=== PATIENT | male | born 1985 | race Caucasian/White ===

== ENCOUNTER 2021-08-30 22:40 | Emergency (ER) | payer SELFPAY ==
[2021-08-30 23:13] VITALS: BP 137/93; PULSE 82; RESP 20; TEMP 36.2; O2SAT 97; BMI 30.4
[2021-08-31 00:46] VITALS: BP 118/83; PULSE 69; RESP 16; O2SAT 99
--- NOTE | 2021-08-31 09:44 | ED.GIBLEED ---
HPI - GI Bleed General Date Seen: 08/30/21 Chief complaint: GI Bleed Stated complaint: Blood in stools Time Seen by Provider: 08/30/21 23:26 Source: patient and RN notes reviewed Mode of arrival: ambulatory Limitations: no limitations History of Present Illness HPI Narrative: 36-year-old man presenting with a friend with concern of blood with stooling. Not particular pain but does report than a residual ache in his low abdomen/pelvis also over the last 3 days. He has had a daily mild bowel movement over the last 3 days and notes what looked like a ?murder scene? the 1st and 2nd bowel movement. Today less so. Still a good deal bleeding though. He is not bleeding between his bowel movements. Denies a history of food intolerances. Not feeling short of air lightheaded. Does have nausea after these bowel movements. There has been no fever. No trauma noted. He called in to triage who recommended to be evaluated in the emergency department. He was actually trying to make a primary care appointment. Denies a personal or family history of irritable bowel or inflammatory bowel disorders. No known personal history of hemorrhoids. Related Data Home Medications Medication Instructions Recorded Confirmed No Known Home Medications 08/30/21 08/30/21 Allergies Allergy/AdvReac Type Severity Reaction Status Date / Time tetracycline Allergy Verified 08/30/21 23:22 Review of Systems Status of ROS: Reports: 10 or more systems reviewed and unremarkable except as noted in History and below Const: Denies: fever or chills PFSH [facility] Medical History No significant past medical history Social History Smoking Status: Never smoker Do you use any of these nicotine containing products: E-Cigarettes Second hand tobacco smoke exposure: No How often do you have a drink containing alcohol: monthly or less How many standard drinks containing alcohol do you have on a typical day: 1 or 2 AUDIT-C Alcohol total score: 1 Non-prescribed substance use: denies use service: Yes Exam Narrative: Exam Narrative: Pleasant NAD. Appropriately and casually groomed. Accompanied by friend Skin is warm and dry. No evidence of active bleeding. He is breathing easily. Cranial nerves 2-12 intact. Moving all extremities without difficulty with good perfusion. Heart with regular rate and rhythm. No murmurs rubs gallops Abdomen with normoactive bowel sounds soft without masses and slightly tender in the suprapubic area. anoscopy exam shows a small noninflamed swelling at the 9 o'clock position consistent with probable prior hemorrhoid. No active bleeding or internal hemorrhoids were visualized at least the extent of the anoscope. Const: Vital Signs, click to edit/add: Vital Signs - 24 hr 08/30/21 23:13 08/31/21 00:46 Temperature 97.2 F L Pulse Rate [Pulse Oximeter] 82 69 Respiratory Rate 20 16 Blood Pressure [Ri ght Upper Arm] 137/93 H 118/83 Pulse Oximetry 97 99 Documenting provider has reviewed patient's vital signs: yes Course Course Hospital Course: I did anticipate potentially doing abdomen pelvis CT though admittedly suspect this is lower yield and in no other symptoms of concerning infectious etiology nor is abdomen acute. After initially ordering this I did consult with a colleague who would be doing colonoscopy and confirmed colonoscopy really is better course of action in this case. Vital Signs Vital signs: Initial Vital Signs Temperature 97.2 F L 08/30/21 23:13 Temperature Source Temporal Artery Scan 08/30/21 23:13 Pulse Rate 82 08/30/21 23:13 Pulse Rhythm 08/30/21 23:13 Respiratory Rate 20 08/30/21 23:13 Blood Pressure 137/93 H 08/30/21 23:13 Blood Pressure Mean 107 08/30/21 23:13 Blood Pressure Position Supine 08/30/21 23:13 Pulse Oximetry 97 08/30/21 23:13 Oxygen Delivery Method 08/30/21 23:13 Vital Signs Temperature 97.2 F L 08/30/21 23:13 Pulse Rate 82 08/30/21 23:13 Respiratory Rate 20 08/30/21 23:13 Blood Pressure 137/93 H 08/30/21 23:13 Pulse Oximetry 97 08/30/21 23:13 Temperature 97.2 F L 08/30/21 23:13 Pulse Rate 69 08/31/21 00:46 Respiratory Rate 16 08/31/21 00:46 Blood Pressure 118/83 08/31/21 00:46 Pulse Oximetry 99 08/31/21 00:46 MDM - GI Bleed MDM Narrative Medical decision making narrative: See above. With normal vitals and no extreme discomfort do not think laboratory evaluation is necessary at this time. No further bleeding during time in the ER. Comfortable with outpatient follow-up. Medical Records Attestation: I reviewed the patient's medical records. (Limited are available.) Discharge Plan Discharge Clinical Impression: Rectal bleeding Patient Disposition: Home, Self-Care Condition: Stable Additional Instructions: Please call tomorrow to schedule colonoscopy on recommendation from the emergency department. Probably be good to establish primary care provider well. At the [facility] Dr. Shah is the GI doc doing colonoscopies. At [facility] Dr. Yousif or the General Surgeons ([place] at least) do them. Can call [phone] or [phone] to the [facility] Otherwise return for increasing frequency of bleeding, particularly outside of bowel movements, marked increase in abdominal pain, fever, repeated vomiting. Prescriptions: No Action No Known Home Medications 0RF Follow Up/Referrals: Elaine Laureano MD [Primary Care Provider] - Stand Alone Forms: [employer] Info Instructions
== END 2021-08-31 00:53 | disposition home or self-care (01) ==
LOC: ED 08-31 00:35
PROVIDERS: Emergency Provider Family Medicine; PCP Pediatrics
DX: K62.5 Hemorrhage of anus and rectum (principal)
CPT/HCPCS: 99283; 99284

== ENCOUNTER 2024-09-24 00:38 | Emergency (ER) | payer BC, SELFPAY ==
--- OUTSIDE RECORDS SUMMARY | 2024-09-24 00:41 | XMS_ITS | Clinical Summary ---
Author Organization [facility] Address [address] [place] [id number] Care Team Providers Care Tools Administrator Name Role Phone Mike Mayen DO Primary Care Provider [phone] Allergies Active Allergy Reactions Criticality Noted Date Comments Tetracycline Other - Describe In Comment Field 12/19/2006 Pseudotumor cerebri Medications ondansetron (ZOFRAN ODT) 4 mg disintegrating tabletIndications:M igraine syndrome Place 1 Tablet (4 mg) on the tongue every 8 hours if needed for Nausea/Vomit ing. 30 Tablet 5 Active SUMAtriptan (IMITREX) 50 mg tabletIndications:M igraine syndrome Take 1 Tablet (50 mg) by mouth every 2 hours if needed for Migraine. Give at minimum 2hrs apart. Max Dose: 200mg per 24hrs. 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 Alcohol use disorder soon after. Sober from those substances at age 25. Sober since that time with occasional minimal alcohol use. Assessment & Plan (04/12/2024 7:50 AM HOME ASSESSMENT NURSE): Meth. Noted in 2018. Has been to treatment. Encounters Date Type Department Care Team Description 09/23/2024 1:25 PM CDT Office Visit [facility] [address] [place] [address] Adelina Mendoza DO URI (started Monday-/body aches, fever, ) 09/23/2024 Travel from Last 3 Months Immunizations Immunization Administration Dates Next Due DTP 05/11/1990,01/15/1988,1986 ,1986,1986 Influenza, IIV4 02/04/2015 MMR 09/08/1998,08/13/1987 Oral Polio Vaccine 05/11/1989,01/15/1988, 987,1986 Td (Age >=7 Years) 09/08/1998,07/30/1996 Tdap 10/13/2014 Family History Medical History Relation Name Comments Cancer Maternal Grandfather multiple heart attack Maternal Grandfather Relation Name Status Comments Maternal Grandfather Social History Tobacco Use Types Packs/Day Years Used Date Smoking Tobacco: Former Cigarettes Q uit: 2002 Smokeless Tobacco: Former Tobacco Cessation:Counseling Given: Yes Alcohol Use Standard Drinks/Week Comments Yes 0 (1 standard drink = 0.6 oz pur e alcohol) once a week PHQ-2 Answer Date Recorded PHQ-2 TOTAL SCORE 0 05/03/2024 Social Connections Answer Date Recorded Do you often feel lonely or isolated from those around you? 0 06/20/2023 Financial Resource Strain Answer Date R ecorded Difficulty of Paying Living Expenses 3 06/20/2023 Difficulty of Paying Living Expenses Not on file 06/20/2023 Food Insecurity Answer Date Recorded Do you worry your food will run out before you are able to buy more? 1 06/20/2023 Transportation Needs Answer Date Record ed Does lack of transportation keep you from medica l appointments? 1 06/20/2023 Does lack of transportation keep you from work, meetings or getting things that you need? 1 06/20/2023 Housing Stability Answer Date Recorded What is your housing situation today? 1 06/20/2023 Utilities Answer Date Recorded Do you have trouble paying f or utilities (for example, heat, electricity, water, phone)? 1 06/20/2023 Sex and Gender Information Value Date Recorded Sex Assigned at Not on file Legal Sex Male 6:05 AM HOME ASSESSMENT NURSE Gender Identity Not on file Sexual Orientation Not on file Obstetrics History Last Filed Vital Signs Vital Sign Reading Time Taken Comments Blood Pressure 147/95 09/23/2024 1:23 PM CDT Pulse 86 09/23/2024 1:23 PM CDT Temperature 36.8 C (98.2 F) 09/23/2024 1:23 PM CDT Respiratory Rate - - Oxygen Saturation 98% 09/23/2024 1:23 PM CDT Inhaled Oxygen Concentration - - Weight 97.7 kg (215 lb 6.4 oz) 09/23/2024 1:23 P M CDT Height 182.9 cm (6') 05/03/2024 12:22 PM HOME ASSESSMENT NURSE Body Mass Index 29.21 05/03/2024 12:22 PM HOME ASSESSMENT NURSE Plan of Treatment Health Maintenance Due Date Last Done Comments Hepatitis B series for 19+ (1 of 3 - 19+ 3-dose series) 2005 COVID-19 vaccine series (2023- season) 2023 Tetanus booster 10/13/2024 10/13/2014, 09/27, 09/08/1998, Additional history exists Influenza Vaccine (#1) 2024 02/04/2015 BMI (ht and wt on same day) for age 18+ 05/03/2025 05/03/2024, 04/12/2024, 06/13/2022, Additional history exists Depression screening for age 12+ 05/03/2025 05/03/2024, 09/01/2021, 10/01/2018, Additional history exists Lipids for age 35-44 04/26/2029 04/26/2024 HIV for age 15-65 Completed 10/13/2014 Hepatitis C screening for age 18-79 Completed 10/13/2014 Pneumococcal series for age 6-49 Aged Out No longer eligible based on patient's age to complete this topic Procedures Procedure Name Priority Date/Time Associated Diagnosis Comments LIPID PANEL Routine 04/26/2024 9:24 AM HOME ASSESSMENT NURSE Screening cholesterol level ANTI HIV 1/2 Routine 10/13/2014 10:24 AM CDT Extensive tattoos ANTI HCV Routine 10/13/2014 10:24 AM CDT Extensive tattoos from Last 3 Months or Most Recently Relevant to Health Maintenance Results * (ABNORMAL) LIPID PANEL (04/26/2024 9:24 AM HOME ASSESSMENT NURSE) CHOLESTEROL, TOTAL 154 <200 mg/dL [facility] HDL CHOLESTEROL 39(L) > OR = 40 mg/dL [facility] TRIGLYCERIDES 57 <150 mg/dL [facility] LDL-CHOLESTEROL 101(H) mg/dL (calc) [facility] Comment: Reference range: <100 Desirable range <100 mg/dL for primary prevention; <70 mg/dL for patients with CHD or diabetic patients with > or = 2 CHD risk factors. LDL-C is now calculated using the Eliseo-Carlene calculation, which is a validated novel method providing better accuracy than the Friedewald equation in the estimation of LDL-C. Eliseo SS et al. ELLIE. 2013;310(19): 6493-3029 (http://education.PPTV/faq/YYD434) CHOL/HDLC RATIO 3.9 <5.0 (calc) [facility] NON HDL CHOLESTEROL 115 <130 mg/dL (calc) [facility] Comment: For patients with diabetes plus 1 major ASCVD risk factor, treating to a non-HDL-C goal of <100 mg/dL (LDL-C of <70 mg/dL) is considered a therapeutic option. Blood BLOOD SPECIMEN / Unknown 04/26/2024 9:24 AM HOME ASSESSMENT NURSE 04/26/2024 9:25 AM HOME ASSESSMENT NURSE us Darin Manzano MD CHEMISTRY Final Result [facility] [address] [place] [address], [facility] [address] [place] [address] * ANTI HCV (10/13/2014 10:24 AM CDT) HEPATITIS C ANTIBODY Non-Reacti ve Non-Reacti ve 10/13/2014 6:12 PM CDT [facility] Blood specimen (specimen) BLOOD SPECIMEN / Unknown Venipuncture / Unknown 10/13/2014 10:24 AM CDT 10/13/2014 10:24 AM CDT Narrative [facility] - 10/13/2014 6:12 PM CDT Antibodies to HCV not detected; does not exclude the possibility of exposure to HCV. Tavon Alvarado MD SEND OUTS Final Result [facility] [address] [place] [address], * ANTI HIV 1/2 (10/13/2014 10:24 AM CDT) HIV-1/HIV-2 ANTIBODY Non-Reacti ve Non-Reacti ve 10/13/2014 6:11 PM CDT [facility] Blood specimen (specimen) BLOOD SPECIMEN / Unknown Venipuncture / Unknown 10/13/2014 10:24 AM CDT 10/13/2014 10:24 AM CDT [facility] - 10/13/2014 6:11 PM CDT HIV-1 p24 and HIV-1/HIV-2 Ab not detected Tavon Alvarado MD SEND OUTS Final Result [facility] [address] [place] [address], from Last 3 Months or Most Recently Relevant to Health Maintenance Insurance [place] [employer] Care Teams Tools Administrator Relationship Specialty Start Date End Date [place] [address] [place] [address] PCP - General Family Practice 04/12/24
[2024-09-24 00:42] VITALS: BP 152/95; PULSE 80; TEMP 36.5; O2SAT 96; BMI 30.7
--- NOTE | 2024-09-24 01:11 | CRLHL7_ITS ---
For Patients: As a result of the Cures Act, medical imaging exams and procedure reports are released immediately into your electronic medical record. You may view this report before your referring provider. If you have questions, please contact your health care provider. INDICATION: Palpitations. TECHNIQUE: Chest 2 views. COMPARISON: None. FINDINGS: Cardiovascular and mediastinum: Heart size and vasculature are normal in caliber and appearance. Lungs and pleural spaces: No focal consolidation, pleural effusion, or pneumothorax. Bones and soft tissues: Unremarkable for age. IMPRESSION: No evidence of an acute pulmonary process. Dictated by Darin Arzate MD @ 09/24/2024 1:37:54 AM (Electronically Signed)
--- NOTE | 2024-09-24 01:18 | ED_ITS ---
HPI - General Adult General Chief complaint: Arrhythmia/Palpitations Stated complaint: shortness of breath/rapid hearbeat Time Seen by Provider: 09/24/24 00:44 Source: patient Mode of arrival: ambulatory Limitations: no limitations History of Present Illness HPI narrative: 39-year-old male presents to the emergency department with an hour and a half history of sensation of racing, pounding heart. No trauma or injury. No prior history of similar symptoms. No history of cardiac disease. Sensation of heart pounding with a feeling of tightness in his left chest briefly. No history DVT or PE. Symptoms spontaneously resolved on route to the emergency department and is asymptomatic at the time of arrival. No alcohol in the last 48 hours but did multiple bumps of cocaine 2 nights ago, reports that that was his 1st time. No shortness of breath, no GI changes. No nausea or vomiting. Denies other recreational drugs in the last couple of days. Reports that he smokes marijuana a couple of times per month. Does not use any type of a fitness watch, but he did download an amanda on his phone that he could check his heart rate with using the sensors near his camera, and it said his heart rate was around 80. When I asked more specifically if he felt like his heart was skipping beats, going really fast or just pounding, he was unable to clarify this further. Symptoms awoke him from sleep. No fever or other recent illness or ill minute. Did not try any other interventions prior to coming to ED. past medical history benign per his report. No major long-term health problems. Recreational cocaine as described above a few days ago. Allergies to tetracycline, does have prescriptions for Imitrex and Zofran for migraines, no recent use. No tobacco products. ROS is notable for the cardiac symptoms as above, otherwise denies times 12 systems. Related Data Home Medications ?Medication ?Instructions ?Recorded ?Confirmed No Known Home Medications 08/30/2106/18 Allergies Allergy/AdvReac Type Severity Reaction Status Date / Time tetracycline Allergy Verified 09/24/24 00:46 [facility] Medical History No significant past medical history Social History (System 10/14/21 @ 10:30 by Nery Mccall) Smoking Status: Never smoker Do you use any of these nicotine containing products: E-Cigarettes Second hand tobacco smoke exposure: No How often do you have a drink containing alcohol: monthly or less How many standard drinks containing alcohol do you have on a typical day: 1 or 2 AUDIT-C Alcohol total score: 1 Non-prescribed substance use: denies use service: Yes Exam Const: Vital Signs, click to edit/add: Vital Signs - 24 hr 09/24/ 00:42 Temperature 97.7 F Pulse Rate [Pulse Oximeter] 80 Blood Pressure [Ri ght Upper Arm] 152/95 H Pulse Oximetry 96 Oxygen Delivery Me thod Room Air Documenting provider has reviewed patient's vital signs: yes Common normals: no apparent distress and alert General appearance: cooperative and comfortable HENMT: Common normals: normocephalic, moist oral mucous membranes and oropharynx normal Head and scalp: normocephalic Face and sinus: normal fac ial exam Mouth: oral and palatal mucosa normal Eye: Common normals: conjunctivae normal General eye: normal appearance of both eyes Conjunctiva: conjunctiva(e) normal Neck & C-Spine: Common normals: full ROM and no lymphadenopathy General: normal visual inspection Chest: Common normals: inspection of chest normal Resp: Common normals: normal respiratory effort, no use of accessory muscles and clear to auscultation bilaterally Effort & inspection: able to speak in complete sentences Auscultation: clear to auscultation bilaterally Cardio: Common normals: regular rate, regular rhythm, S1 normal heart sound, S2 normal heart sound and no murmurs Rate: regular rate Rhythm: regular rhythm Heart sounds: S1 normal and S2 normal GI: Common normals: Normal to inspection, nondistended, normoactive bowel sounds present, soft to palpation, non-tender, no hepatosplenomegaly and no masses Palpation: soft and no hepatosplenomegaly Extremity: Common normals: normal to inspection, normal capillary refill and no pedal edema Neuro: Sensorium/orientation: alert Speech: speech normal Psych: Appearance: grossly normal Attitude: calm Activity/motor behavior: appropriate eye contact Insight: fair Judgement: fair Skin: Common normals: no rashes or lesions noted General skin exam: no rashes or lesions noted Course Course ED Course: 39-year-old male with episode of palpitations and chest tightness, now resolved. Differential diagnosis including acute coronary syndrome, pulmonary embolism, heart failure, complications recent heavy cocaine use, anxiety, GERD, musculoskeletal symptoms, arrhythmia, amongst multiple others. Recommended chest x-ray, air sampling and monitoring, EKG, typical cardiac labs. Patient remains asymptomatic at this time, no treatment needed acutely. There is no evidence of significant persistent tachycardia or hypoxia, I do not think that workup for pulmonary embolism is necessary. Will add thyroid testing as well. Await findings. Reevaluation(s) Time of Reevaluation #1: 02:35 Reevaluation #1: Patient remains an asymptomatic here in the emergency department. Has been observed now for an hour and a half with no symptoms. Do not recommend serial troponin based on presentation. Counseled patient on rationale. brief episodes of palpitations can be triggered by many things including reflux, anxiety, poor sleep, the recent cocaine usage, alcohol, many others in septal people. There are no signs of thyroid disease, dehydration, acute coronary syndrome or any arrhythmia contributing today. I recommended discharge from the emergency department, keeping a close symptom diary. He now does have an amanda on his phone to track his heart rate, encouraged him to use this if he becomes symptomatic. Make a follow-up appointment with his primary care provider to discuss further testing. Would consider doing a Holter monitor, could consider an echo or stress test if symptoms would warrant but with a single episode, these are unlikely to be necessary. Alarm symptoms were reviewed that would warrant ED presentation. Written instructions provided, all questions answered. Vital Signs Vital signs: Initial Vital Signs Temperature 97.7 F 09/24/24 00:42 Temperature Source Temporal Artery Scan 09/24/24 00:42 Pulse Rate 80 09/24/24 00:42 Pulse Rhythm Regular 09/24/24 00:42 Blood Pressure 152/95 H 09/24/24 00:42 Blood Pressure Mean 114 H 09/24/24 00:42 Blood Pressure Position Sitting 09/24/24 00:42 Pulse Oximetry 96 09/24/24 00:42 Oxygen Delivery Method Room Air 09/24/24 00:42 Vital Signs Temperature 97.7 F 09/24/24 00:42 Pulse Rate 80 09/24/24 00:42 Blood Pressure 152/95 H 09/24/24 00:42 Pulse Oximetry 96 09/24/24 00:42 Oxygen Delivery Method Room Air 09/24/24 00:42 Temperature 97.7 F 09/24/24 00:42 Pulse Rate 80 09/24/24 00:42 Blood Pressure 152/95 H 09/24/24 00:42 Pulse Oximetry 96 09/24/24 00:42 Oxygen Delivery Method Room Air 09/24/24 00:42 Medical Decision Making Lab Data Lab results reviewed: Yes I reviewed the patient's lab results Lab results narrative: Labs all reassuring. Labs: Lab Results 09/24/24 Range/Units 01:25 WBC 8.48 (4.50-11.00) K/uL RBC 5.11 (4.30-5.90) m/uL Hgb 15.7 (13.5-17.5) gm/dL Hct 44.8 (37.0-53.0) % MCV 88 (80-100) fL MCH 31 (26-34) pg MCHC 35 (32-36) gm/dL RDW Coeff of Keegan 12.0 (11.5-15.5) % Plt Count 285 (140-440) K/uL Neut % (Auto) 55.6 (42.0-72.0) % Lymph % (Auto) 24.5 (20-44) % Harlan % (Auto) 11.9 H (0.0-11.0) % Eos % (Auto) 6.5 (0.0-7.0) % Baso % (Auto) 0.8 (0.0-3.0) % Neut # (Auto) 4.71 (1.7-7.0) K/uL Lymph # (Auto) 2.08 (0.90-2.90) K/uL Harlan # (Auto) 1.00 H (0.00-0.90) K/UL Eos # (Auto) 0.55 H (0.00-0.50) K/uL Baso # (Auto) 0.07 (0.00-0.30) K/uL Abs Immat Gran (auto) 0.06 (0.00-0.30) K/uL Imm/Tot Granulo (auto) 0.7 % Sodium 141 (135-149) mmol/L Potassium 3.8 (3.6-5.1) mmol/L Chloride 106 (96-114) mmol/L Carbon Dioxide 26 (20-32) mmol/L Anion Gap 9 (7-15) mEq/L BUN 12 (5-24) mg/dL Creatinine 1.1 (0.5-1.5) mg/dL Estimated Creat Clear 96.98 Estimated GFR 88 ml/min Glucose 107 (60-115) mg/dL Calcium 9.3 (8.4-10.6) mg/dL Troponin I < 0.01 (0.01-0.04) ng/mL C-Reactive Protein 0.9 (0.5-1.0) mg/dL TSH 2.000 (0.270-4.200) uIU/mL Imaging Data Chest x-ray: Attestation: I have reviewed the pertinent imaging results. My impression: Normal chest x-ray. No infiltrate, cardiomegaly, effusions, pneumothorax or other major abnormalities. Radiologist's impression: IMPRESSION: No evidence of an acute pulmonary process. Dictated by Darin Arzate MD @ 09/24/2024 1:37:54 AM (Electronically Signed) ECG Data Attestation: I personally reviewed and interpreted this ECG as follows: Prior ECG tracings: not available for review Interpretation: Sinus rhythm with a rate of 67. Normal intervals and axis. No significant ST or T-wave abnormalities. Normal EKG. Discharge Plan Discharge Clinical Impression: Palpitations Patient Disposition: Home w/ Parent or Adult Condition: Improved Instructions: Heart Palpitations (DC) Additional Instructions: As we discussed, this feeling of racing heart and chest tightness can be triggered by many things. In the emergency department, it was determined that you are not in an abnormal heart rhythm, also cold and arrhythmia. There were no signs of heart attack, heart failure, blood clots, dehydration, electrolyte abnormalities, infection or other major abnormalities. There are many things that can trigger this including anxiety, stimulant medications, recent poor sleep, thyroid disorders, gastric reflux, amongst others. Since her symptoms had resolved prior to coming into the emergency department, it is difficult to tell if you were in an abnormal heart rhythm prior to arrival. I would recommend that you make a follow-up appointment with your primary care provider to discuss her symptoms and consider having a Holter monitor placed. Your provider can also consider doing an echo which is an ultrasound of the heart or a stress test which is a way to evaluate the arteries if you have persistent or worsening symptoms. Typically in the emergency department, we are not concerned unless her heart rate is persistently over 125 at rest. If you have severe, unrelenting symptoms, you should be re-evaluated. Do consider investing in a pulse oximeter, these are inexpensive and can be obtained from any local pharmacy. These will tell you your heart rate and oxygen levels and may give you reassurance for similar episodes in the future. You may return to unrestricted work duties. I would not recommend continued use of cocaine. Activity Level: No Restrictions Prescriptions: No Action No Known Home Medications Follow Up/Referrals: Elaine Laureano MD [Staff Physician, Pediatrics] Stand Alone Forms: [employer] Info Instructions
[2024-09-24 01:30] LABS: Hematocrit 44.8 % (37.0-53.0); Hemoglobin* 15.7 gm/dL (13.5-17.5); Immature Granulocytes Abs Auto 0.06 K/uL (0.00-0.30); Immature Granulocytes Pct Auto 0.7 %; Lymphocytes Absolute Auto 2.08 K/uL (0.90-2.90); Mean Corpuscular HGB Conc 35 gm/dL (32-36); Mean Corpuscular Hemoglobin 31 pg (26-34); Mean Corpuscular Volume 88 fL (80-100); RDW Coefficient of Variation % 12.0 % (11.5-15.5); Red Blood Count 5.11 m/uL (4.30-5.90); White Blood Count* 8.48 K/uL (4.50-11.00)
[2024-09-24 01:36] LABS: Slide Review Reflex No
[2024-09-24 01:48] LABS: Blood Urea Nitrogen* 12 mg/dL (5-24); Calcium* 9.3 mg/dL (8.4-10.6); Carbon Dioxide* 26 mmol/L (20-32); Creatinine* 1.1 mg/dL (0.5-1.5); Est. Creatinine Clearance* 96.98; Estimated Glomerular Filt Rate 88 ml/min; Glucose* 107 mg/dL (60-115)
[2024-09-24 02:04] LABS: Anion Gap 9 mEq/L (7-15); Chloride* 106 mmol/L (96-114); Potassium* 3.8 mmol/L (3.6-5.1); Sodium* 141 mmol/L (135-149)
[2024-09-24 02:26] LABS: TSH With Reflex to FT4* 2.000 uIU/mL (0.270-4.200)
[2024-09-24 02:51] VITALS: BP 129/86; PULSE 61; RESP 18
== END 2024-09-24 02:54 | disposition home or self-care (01) ==
PROVIDERS: Emergency Provider Family Medicine
DX: R00.2 Palpitations (principal); F12.90 Cannabis use, unspecified, uncomplicated; F14.90 Cocaine use, unspecified, uncomplicated; Z79.899 Other long term (current) drug therapy
CPT/HCPCS: 36415; 71046; 80048; 84443; 84484; 85025; 86140; 93005; 99284; 99285